=== PATIENT | male | born 1935 | race Caucasian/White ===

== ENCOUNTER → 2017-04-15 | Outpatient (CLI) | payer MEDICARE ==
[~2017-04-15] MED LIST: ASPI-650 PO; AZIT500T77 PO; CEFD300C37 PO; GLIM4TAB2 PO; GUAI600T22 PO; LACT1CAP24 PO; LOSA25TA5 PO; METF10002 PO; SIMV10TA3 PO
== END | disposition home or self-care (01) ==
LOC: LAB 05:55
PROVIDERS: ATTEND Internal Medicine
DX: R05 Cough (principal)
CPT/HCPCS: 36415; 86480

== ENCOUNTER 2017-10-10 15:16 | Inpatient (IN) | payer MEDICARE ==
[~2017-10-10] VITALS: Ht 167.6 cm; Wt 70.9 kg
[~2017-10-10 15:16] MED LIST changes: +AZIT500T5 PO; -AZIT500T77 PO; -GUAI600T22 PO; +GUAI600T31 PO
[2017-10-10] MEDS ORDERED: ACETAMINOPHEN 500 MG TABLET PO ONE (15:30)
[2017-10-10] MEDS ORDERED: CEFTRIAXONE PMX 1GM/50ML 50 ML IVPB ONE (15:30)
[2017-10-10] MEDS ORDERED: SODIUM CHLORIDE 0.9% 1,000ML IVBOLUS ONE (15:30)
[2017-10-10] MEDS ORDERED: CEFTRIAXONE PMX 1GM/50ML 50 ML ONE (15:31)
[2017-10-10] MEDS ORDERED: ACETAMINOPHEN 500 MG TABLET ONE (15:31)
[2017-10-10] MEDS ORDERED: GLIP10TA13 PO (15:37)
[2017-10-10 15:54] LABS: BASOPHILS # (AUTO) 0.01 x10^3/uL (0-0.1); BASOPHILS % (AUTO) 0 % (0-1); EOSINOPHILS % (AUTO) 0 % (1-7); LYMPHOCYTES # (AUTO) 0.82 x10^3/uL (1-3.4); LYMPHOCYTES % (AUTO) 9 % (22-44); MD NO; MEAN CORPUSCULAR HEMOGLOBIN 28.2 pg (27.5-34.5); MEAN CORPUSCULAR VOLUME 85.6 fL (81-97); MEAN PLATELET VOLUME 7.6 fL (7.4-10.4); MONOCYTES # (AUTO) 1.38 x10^3/uL (0.2-0.8); MONOCYTES % (AUTO) 16 % (2-9); NEUTROPHILS # (AUTO) 6.54 x10^3/uL (1.8-6.8); NEUTROPHILS % (AUTO) 75 % (42-75); PLATELET COUNT 182 x10^3/uL (130-400); RED BLOOD COUNT 4.84 x10^6/uL (4.38-5.82); RED CELL DISTRIBUTION WIDTH 15.9 % (9.4-14.8)
[2017-10-10 16:04] LABS: ALANINE AMINOTRANSFERASE 16 U/L (12-78); ALBUMIN 3.5 g/dL (3.4-5.0); ANION GAP 5 mmol/L (5-15); CALCIUM 8.7 mg/dL (8.5-10.1); CHLORIDE 104 mmol/L (98-107); CREATININE 1.45 mg/dL (0.7-1.3)
[2017-10-10 16:06] LABS: ALKALINE PHOSPHATASE 65 U/L (45-117); BILIRUBIN,TOTAL 0.5 mg/dL (0.2-1.0); TOTAL PROTEIN 7.9 g/dL (6.4-8.2)
[2017-10-10] MEDS ORDERED: AZITHROMYCIN 500 MG in SODIUM CHLORIDE 0.9% 250 ML IV ONE (16:30)
[2017-10-10 19:10] VITALS: BP 115/51
[2017-10-10] MEDS ORDERED: ONDANSETRON 2MG/ML, 2ML IVPush PRN (19:30)
[2017-10-10] MEDS ORDERED: ALBUTEROL/IPRATROPIUM 2.5MG/0.5MG, 3 ML NPPB PRN (20:00)
[2017-10-10] MEDS: LACTOBACILLUS CHEW TABLET PO SCH (20:51)
[2017-10-10] MEDS: SIMVASTATIN 10 MG TABLET PO SCH (20:52)
[2017-10-10] MEDS: INSULIN REGULAR 100 UNITS/ML, 3ML VIAL SQ-INSULIN SCH (20:52)
[2017-10-11 03:21] VITALS: BP 119/56
[2017-10-11] MEDS: ACETAMINOPHEN 325 MG TABLET PO PRN (03:28)
[2017-10-11] MEDS: INSULIN REGULAR 100 UNITS/ML, 3ML VIAL SQ-INSULIN SCH ×4 (07:00→20:09)
[2017-10-11 07:58] VITALS: BP 115/56
[2017-10-11] MEDS ORDERED: ASPIRIN 325 MG TABLET EC PO SCH (09:00)
[2017-10-11] MEDS: LOSARTAN 25MG TABLET PO SCH (10:24)
[2017-10-11] MEDS: LACTOBACILLUS CHEW TABLET PO SCH ×3 (10:25→19:59)
[2017-10-11] MEDS: GUAIFENESIN/DM 200-20MG, 10ML UDC PO PRN ×2 (10:31→16:34)
[2017-10-11 14:00] VITALS: BP 124/68
[2017-10-11] MEDS: CEFTRIAXONE PMX 2GM/50ML 50 ML IV SCH (16:38)
[2017-10-11] MEDS: AZITHROMYCIN 500 MG in SODIUM CHLORIDE 0.9% 250 ML IV SCH (17:27)
[2017-10-11 18:41] VITALS: BP 131/65
[2017-10-11] MEDS: SIMVASTATIN 10 MG TABLET PO SCH (19:59)
[2017-10-12] MEDS: ACETAMINOPHEN 325 MG TABLET PO PRN (00:59)
[2017-10-12 02:24] VITALS: BP 146/70
[2017-10-12] MEDS: INSULIN REGULAR 100 UNITS/ML, 3ML VIAL SQ-INSULIN SCH ×4 (07:00→21:00)
[2017-10-12 07:51] VITALS: BP 125/71
[2017-10-12] MEDS: LACTOBACILLUS CHEW TABLET PO SCH ×3 (09:48→20:05)
[2017-10-12] MEDS: GUAIFENESIN/DM 200-20MG, 10ML UDC PO PRN ×2 (09:48→17:23)
[2017-10-12] MEDS: LOSARTAN 25MG TABLET PO SCH (09:48)
[2017-10-12] MEDS: ASPIRIN 81 MG TABLET EC PO SCH (09:48)
[2017-10-12 14:00] VITALS: BP 154/74
[2017-10-12] MEDS: CEFTRIAXONE PMX 2GM/50ML 50 ML IV SCH (17:03)
[2017-10-12] MEDS: AZITHROMYCIN 500 MG in SODIUM CHLORIDE 0.9% 250 ML IV SCH (18:40)
[2017-10-12 19:15] VITALS: BP 138/63
[2017-10-12] MEDS: SIMVASTATIN 10 MG TABLET PO SCH (20:05)
[2017-10-13 02:16] VITALS: BP 119/69
[2017-10-13 07:00] VITALS: BP 154/78
[2017-10-13] MEDS: INSULIN REGULAR 100 UNITS/ML, 3ML VIAL SQ-INSULIN SCH ×2 (07:41→11:00)
[2017-10-13] MEDS: LOSARTAN 25MG TABLET PO SCH (08:23)
[2017-10-13] MEDS: GUAIFENESIN/DM 200-20MG, 10ML UDC PO PRN (08:23)
[2017-10-13] MEDS: LACTOBACILLUS CHEW TABLET PO SCH (08:23)
[2017-10-13] MEDS: ASPIRIN 81 MG TABLET EC PO SCH (08:23)
[2017-10-13 13:58] VITALS: BP 128/73
[2017-10-13] MEDS ORDERED: AZIT500T5 PO (14:36)
[2017-10-13] MEDS ORDERED: CEFD300C37 PO (14:36)
== END 2017-10-13 15:46 | disposition home health service (06) | DRG 871 ==
LOC: ED 16:20 → EDIP 16:35 → 3NE 18:37 → DCLOUNGE 10-13 15:30
PROVIDERS: ADMIT Internal Medicine; ATTEND Family Medicine
DX: A41.9 Sepsis, unspecified organism (principal); J96.01 Acute respiratory failure with hypoxia; J15.9 Unspecified bacterial pneumonia; J18.9 Pneumonia, unspecified organism; E11.9 Type 2 diabetes mellitus without complications; J84.10 Pulmonary fibrosis, unspecified; E78.5 Hyperlipidemia, unspecified; I10 Essential (primary) hypertension; E78.00 Pure hypercholesterolemia, unspecified; Z87.891 Personal history of nicotine dependence; Z83.3 Family history of diabetes mellitus
CPT/HCPCS: 36415; 71010; 80053; 82962; 83605; 85025; 87040; 93005; 96365; J0456; J0696; J1815; J7030; J7050